=== PATIENT | female | born 1930 | race Caucasian/White ===

== ENCOUNTER 2018-11-21 15:39 | Observation (INO) ==
[2018-11-21] MEDS ORDERED: DIPHTH,PERTUSS(ACELL),TET VAC 0.5 ML VIAL IM ONE (15:58)
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
[2018-11-21 16:35] LABS: Hematocrit 34.6 % (37.0-47.0); Mean Cell Volume 89.6 fl (78-100); Mean Corpuscular Hemoglobin 31.1 pg (27-31); Mean Corpuscular Hgb Conc 34.7 g/dl (32-36); Mean Platelet Volume 9.2 fl (8-12.5); Neutrophil % 68.4 % (42-75.0); Platelet Count 314 K/mm3 (150-450); Red Blood Count 3.86 M/mm3 (4.2-5.4); Red Cell Distribution Width 13.3 % (11.5-14.0); White Blood Count 7.2 K/mm3 (4.0-10.5)
[2018-11-21 16:53] LABS: Troponin I Less than 0.017 ng/mL (0.00-0.10)
[2018-11-21 16:56] LABS: ALT 66 U/L (19-67); AST 77 U/L (0-48); Albumin * 3.4 gm/dl (3.4-5.0); Alkaline Phosphatase * 174 U/L (50-170); Anion Gap 14.5 mmol/L (6.8-13.8); BNP * 1795 pg/mL (5-550); BUN/Creatinine Ratio 12.1 (9.0-21.6); Bilirubin, Total 0.5 mg/dL (0.0-1.1); Blood Urea Nitrogen 19 mg/dL (3-23); Ca. Corrected For Albumin 9.3 mg/dL (8.4-10.2); Calcium * 9.1 mg/dL (7.9-10.9); Carbon Dioxide 24.2 mmol/L (24-32.6); Chloride 100 mmol/L (97-106); Potassium 4.7 mmol/L (3.4-4.6); Sodium 134 mmol/L (132-142); Total Protein 6.8 gm/dL (6.2-8.2)
[2018-11-21 16:57] LABS: Glucose * 547 mg/dL (70-110)
[2018-11-21] MEDS ORDERED: NORMAL SALINE 500 ML IV PRN (17:04)
[2018-11-21] MEDS ORDERED: ACETAMINOPHEN 325 MG TABLET PO ONE (17:57)
[2018-11-21] MEDS ORDERED: LIDOCAINE HCL 50 ML VIAL IJ ONE (19:03)
[2018-11-21 19:18] LABS: Urine Bilirubin Negative (NEGATIVE); Urine Blood Negative /ul (NEGATIVE); Urine Ketone Negative (NEGATIVE); Urine Nitrite Negative (NEGATIVE); Urine Protein Negative (NEGATIVE); Urine Specific Gravity <=1.005 SP.GR. (1.005-1.010); Urine Urobilinogen Normal (NORMAL); Urine pH 5.5 pH (5.0-7.0)
[2018-11-21 19:20] LABS: Urine Appearance Clear (CLEAR); Urine Bacteria None Seen; Urine Color Yellow; Urine RBC None Seen /hpf (0-5); Urine WBC None Seen /hpf (0-5)
[2018-11-21 19:21] LABS: Urine Amorphous Sediment Moderate - 2+ (NONE-FEW)
[2018-11-21] MEDS: NORMAL SALINE 1,000 ML IV PRN (20:28)
[2018-11-21] MEDS ORDERED: INSULIN LISPRO 100 UNITS/ML VIAL SC SCH (21:15)
[2018-11-21] MEDS ORDERED: INSULIN GLARGINE,HUM.REC.ANLOG 100 UNITS/ML VIAL SC ONE (21:50)
[2018-11-21] MEDS ORDERED: INSULIN LISPRO 100 UNITS/ML VIAL SC ONE ×2 (21:56→22:00)
[2018-11-21] MEDS: ACETAMINOPHEN 325 MG TABLET PO PRN (22:24)
[2018-11-22] MEDS: ACETAMINOPHEN 325 MG TABLET PO PRN ×2 (05:33→11:45)
[2018-11-22] MEDS: NORMAL SALINE 1,000 ML IV PRN (07:06)
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
[2018-11-22] MEDS: INSULIN LISPRO 100 UNITS/ML VIAL SC SCH ×2 (07:48→11:51)
[2018-11-22] MEDS ORDERED: LOPERAMIDE HCL 2 MG CAPSULE PO PRN (07:49)
[2018-11-22] MEDS ORDERED: INSULIN REGULAR, HUMAN 100 UNITS/ML VIAL SC STA (08:34)
[2018-11-22 08:56] LABS: Hematocrit 32.7 % (37.0-47.0); Hemoglobin 11.3 gm/dL (12.5-16.0); Mean Cell Volume 89.6 fl (78-100); Mean Corpuscular Hgb Conc 34.6 g/dl (32-36); Mean Platelet Volume 9.4 fl (8-12.5); Neutrophil # 4.9 K/mm3 (1.3-6.0); Neutrophil % 67.3 % (42-75.0); Platelet Count 278 K/mm3 (150-450); Red Blood Count 3.65 M/mm3 (4.2-5.4); Red Cell Distribution Width 13.2 % (11.5-14.0); White Blood Count 7.3 K/mm3 (4.0-10.5)
[2018-11-22] MEDS ORDERED: ENALAPRIL MALEATE 20 MG TABLET PO SCH (09:00)
[2018-11-22] MEDS ORDERED: CALCIUM CARBONATE/VITAMIN D3 1 TAB TABLET PO SCH (09:00)
[2018-11-22] MEDS ORDERED: ASPIRIN 325 MG TABLET.DR PO SCH (09:00)
[2018-11-22] MEDS ORDERED: VERAPAMIL HCL 180 MG TABLET.SA PO SCH (09:00)
[2018-11-22] MEDS ORDERED: LEVOTHYROXINE SODIUM 25 MCG TABLET PO SCH (09:00)
[2018-11-22 09:16] LABS: Anion Gap 11.2 mmol/L (6.8-13.8); Carbon Dioxide 25.9 mmol/L (24-32.6); Estimated Creat Clear 31.9; Potassium 4.1 mmol/L (3.4-4.6); TSH * 2.931 uIU/mL (0.358-3.74)
[2018-11-22] MEDS ORDERED: INSULIN LISPRO 100 UNITS/ML VIAL SC SCH ×2 (12:00)
--- NOTE | 2018-11-22 12:16 | DS ---
Date of Discharge:: 11/22/18 Description of Stay: 88-year-old female admitted for facial injury and right upper extremity injury due to a fall that occurred at the [facility] where she is residing. Patient reports that while walking around the facility with her cane a carie of wind over took her and knocked her down. Patient fell onto her right side hitting her face and the lateral aspect of her right arm and hand. Nursing staff at the facility found her on the ground and decided to take her to the hospital for evaluation. Upon arriving patient was found to have a laceration on the lateral aspect of the dorsum of the right hand and a superficial wound on the lateral aspect of the right arm. She received 7 stitches to repair the laceration on her hand and the wound was covered with medicated patch. Labs on admission demonstrated acute kidney injury with a rise in creatinine of 1.5 and a decreased GFR. Patient was also found to have an elevated BNP but her clinical presentation was not indicative of congestive heart failure and her chest x-ray was also negative for any fluid in her lungs. There was also a positive d-dimer which prompted a CT angios which is negative for PE. Head and cervical CT were negative for any acute process but the head CT did demonstrate a hematoma in the right periorbital area which is where the patient hit her head. Bedside evaluation revealed a patient that was comfortable, maintaining stable vitals, but had a hematoma under her right eye and mild tenderness of her right ribs. She denied any dizziness or headaches and reported adequate control of pain. During the hospitalization patient was treated with gentle hydration which improved her renal function confirmed by a BMP with a decrease of creatinine to 1. Patient was also found to have new onset atrial fibrillation but since then has converted to normal sinus rhythm with adequate heart rate. Given her high risk of falls we will hold off on any anticoagulation except for her regular aspirin. There were no other concerning findings except for a mildly elevated AST and alkaline phosphatase likely related to the fall. After careful bedside evaluation of the patient and of the labs decision to discharge patient back to the [place] where she will receive home health services by [facility] was made. Therefore Mrs. Carey Covington was determined to be homebound due to worsening problems with balance and ambulation and her high risk of falls. The need for physical therapy through [facility] is necessary for addressing issues with balance, safe transfer, and ambulation. Patient is to resume her previous medications including metformin and especially her antihypertensives since her blood pressure was elevated during the hospitalization and she is to follow-up with me her PCP next week. The need for home health care skilled services is directly related to the time spent [id number] with the patient. Procedures Performed: none Results and Findings: Lab Pending Results 11/21/18 16:29: WBC 7.2, RBC 3.86 L, Hgb 12.0 L, Hct 34.6 L, MCV 89.6, MCH 31.1 H, MCHC 34.7, RDW 13.3, Plt Count 314, MPV 9.2, Immature Gran % (Auto) 0.70 H, Immature Gran # (Auto) 0.05 H, Neutrophils % 68.4, Lymphocytes % 20.5, Monocytes % 6.5, Eosinophils % 3.3 H, Basophils % 0.6, Nucleated RBC % 0.0, Neutrophils # 5.0, Lymphocytes # 1.48 L, Monocytes # 0.5, Eosinophils # 0.2, Absolute Basophils 0.0 11/21/18 16:29: Sodium 134, Plasma Sodium 141, Potassium 4.7 H, Chloride 100, Carbon Dioxide 24.2, Anion Gap 14.5 H, BUN 19 D, Creatinine 1.57 H D, Est GFR (Non-Af Amer) 33 L D, BUN/Creatinine Ratio 12.1, Random Glucose 547 H, Calcium 9.1, Calcium Adj for Albumin 9.3, Total Bilirubin 0.5, AST 77 H, ALT 66, Alkaline Phosphatase 174 H, Troponin I Less than 0.017, B-Natriuretic Peptide 1795 H, Total Protein 6.8, Albumin 3.4 11/21/18 16:29: D-Dimer 1.37 H 11/21/18 19:12: Urine Color Yellow, Urine Appearance Clear, Urine pH 5.5, Ur Specific [place] <=1.005, Urine Protein Negative, Urine Glucose (UA) >=1000 H, Urine Ketones Negative, Urine Blood Negative, Urine Nitrate Negative, Urine B ilirubin Negative, Urine Urobilinogen Normal, Ur Leukocyte Esterase Negative, Urine RBC None seen, Urine WBC None seen, Ur Epithelial Cells 0-5, Amorphous Sediment Moderate - 2+ H, Urine Bacteria None seen, Urine Culture Comments No culture indicated 11/22/18 08:40: WBC 7.3, RBC 3.65 L, Hgb 11.3 L, Hct 32.7 L, MCV 89.6, MCH 31.0, MCHC 34.6, RDW 13.2, Plt Count 278, MPV 9.4, Immature Gran % (Auto) 0.40, Immature Gran # (Auto) 0.03, Neutrophils % 67.3, Lymphocytes % 23.2, Monocytes % 6.0, Eosinophils % 2.6, Basophils % 0.5, Nucleated RBC % 0.0, Neutrophils # 4.9, Lymphocytes # 1.70, Monocytes # 0.4, Eosinophils # 0.2, Absolute Basophils 0.0 11/22/18 08:40: Sodium 133, Plasma Sodium 136, Potassium 4.1, Chloride 100, Carbon Dioxide 25.9, Anion Gap 11.2, BUN 14, Creatinine 1.00, Est GFR (Non-Af Amer) 56 L D, BUN/Creatinine Ratio 14.0, Random Glucose 317 H D, Calcium 9.0, TSH 2.931 Discharge Location: [facility] Disposition: [facility] Agency: [facility] Home Health Condition: Stable Face to Face Encounter completed per [facility] Guidelines: Yes Discharge Activity: Activity as tolerated Discharge Diet: Consistent carbs Custodial Therapy: Physical Therapy Referrals: Cece Haile MD [Primary Care Provider] - Additional Patient Instructions (free text): -Please make TCM appointment unless residential discharge, or if following up with outside provider. Thank you! Kaitlynn @ [place] [id number].[facility] new for PT. Please call report and fax orders upon discharge. Prescriptions (Any new or edited meds): traMADol HCL [Tramadol HCl] 50 mg PO Q6H PRN 8 Days #30 tablet PRN Reason: Pain Complete Home Medications List: Complete Home Medication List: aspirin 325 mg tablet,delayed release 325 mg PO DAILY #90 tab 08/05/18 benazepril 40 mg tablet 20 mg PO DAILY #45 tab 08/05/18 calcium carbonate-vitamin D3 600 mg (1,500 mg)-800 unit tablet 1 tab PO DAILY #90 tab 08/05/18 ibuprofen 600 mg tablet 600 mg PO TID PRN #30 tab 08/05/18 metformin 500 mg tablet 500 mg PO BID #180 tab 08/05/18 nateglinide 120 mg tablet 120 mg PO TID #270 tab 08/05/18 verapamil ER 360 mg 24 hr capsule,extended release 360 mg PO DAILY #90 cap 08/05/18 levothyroxine 25 mcg tablet 25 mcg PO DAILY #90 tab 08/09/18 blood sugar diagnostic strips See Dose Instructions .ROUTE .MEDSUPPLY #50 ea 08/10/18 blood-glucose meter kit See Dose Instructions .ROUTE .MEDSUPPLY #1 ea 08/10/18 loperamide 2 mg capsule 2 mg PO Q4H PRN #60 cap 08/16/18 traMADol HCL [Tramadol HCl] 50 mg PO Q6H PRN 8 Days #30 tablet 11/22/18
[2018-11-22 13:13] VITALS: BP 160/65
== END 2018-11-22 13:00 | disposition home health service (06) ==
LOC: ER 15:39 → MS 15:39
PROVIDERS: ADMIT Internal Medicine; ATTEND Family Medicine
DX: S61.419A Laceration without foreign body of unspecified hand, initial encounter; I49.9 Cardiac arrhythmia, unspecified; I48.91 Unspecified atrial fibrillation; S00.83XA Contusion of other part of head, initial encounter; N28.9 Disorder of kidney and ureter, unspecified; W19.XXXA Unspecified fall, initial encounter
CPT/HCPCS: 36415; 70450; 70486; 71275; 72125; 73130; 80048; 80053; 81001; 83519; 83880; 84443; 84484; 85025; 85379; 87081; 90471; 93005; 96374; 96375; 97161; 99285; G0378; Q9967

== ENCOUNTER 2020-03-17 10:45 | Inpatient (IN) ==
[2020-03-17] MEDS ORDERED: ONDANSETRON HCL/PF 2 MG/ML VIAL IV ONE ×2 (11:07→12:53)
[2020-03-17] MEDS ORDERED: FUROSEMIDE 10 MG/ML VIAL IV ONE (11:07)
[2020-03-17 11:23] LABS: Hematocrit 37.2 % (37.0-47.0); Hemoglobin 12.4 gm/dL (12.5-16.0); Mean Cell Volume 90.7 fl (78-100); Mean Corpuscular Hemoglobin 30.2 pg (27-31); Mean Corpuscular Hgb Conc 33.3 g/dl (32-36); Mean Platelet Volume 9.8 fl (8-12.5); Platelet Count 488 K/mm3 (150-450); Red Cell Distribution Width 13.4 % (11.5-14.0)
[2020-03-17 11:25] LABS: Total Cells Counted 100
[2020-03-17 11:43] LABS: Urine Appearance Clear (CLEAR); Urine Bilirubin Negative (NEGATIVE); Urine Blood 150 /ul (NEGATIVE); Urine Color Yellow; Urine Ketone 15 mg/dL (NEGATIVE)
[2020-03-17 11:44] LABS: Urine Nitrite Negative (NEGATIVE); Urine Protein 30 mg/dL (NEGATIVE); Urine Urobilinogen Normal (NORMAL); Urine pH 5.5 pH (5.0-7.0)
[2020-03-17 11:45] LABS: Urine Bacteria None Seen; Urine RBC 0-5 /hpf (0-5); Urine WBC 0-5 /hpf (0-5)
[2020-03-17 11:47] LABS: ALT 32 U/L (19-67); AST 58 U/L (0-48); Albumin * 3.7 gm/dl (3.4-5.0); Alkaline Phosphatase * 106 U/L (50-170); Anion Gap 23.7 mmol/L (6.8-13.8); BNP * 8312 pg/mL (5-550); BUN/Creatinine Ratio 11.3 (9.0-21.6); Bilirubin, Total 1.8 mg/dL (0.0-1.1); Blood Urea Nitrogen 19 mg/dL (3-23); Ca. Corrected For Albumin 9.6 mg/dL (8.4-10.2); Calcium * 9.7 mg/dL (7.9-10.9); Carbon Dioxide 16.8 mmol/L (24-32.6); Chloride 95 mmol/L (97-106); Potassium 4.5 mmol/L (3.4-4.6); Sodium 131 mmol/L (132-142); Total Protein 7.5 gm/dL (6.2-8.2)
[2020-03-17 11:49] LABS: Glucose * 554 mg/dL (70-110)
[2020-03-17 11:51] LABS: Band 8 % (0-2.0); Lymphocyte 3 % (20-51); Monocyte 6 % (0-9); Neutrophil 83 % (42-75); Neutrophil # 16.6 K/mm3 (1.3-6.0); Platelet Estimate Increased (NORMAL); RBC Morphology Normal (NORMAL)
[2020-03-17] MEDS ORDERED: cefTRIAXone SODIUM 1,000 MG/100 ML BAG IV ONE (12:09)
[2020-03-17] MEDS: AZITHROMYCIN 500 MG in DEXTROSE 5 % IN WATER 250 ML IV SCH ×2 (12:53)
[2020-03-17] MEDS ORDERED: DIPHTH,PERTUSS(ACELL),TET VAC 0.5 ML VIAL IM ONE (12:54)
--- NOTE | 2020-03-17 13:12 | ERNOTE ---
Dyspnea - Date Date of Service: 03/17/20 - General Presenting Symptoms: other - left weakness, trouble breathing Time Seen by Provider: 03/17/20 10:53 Source: other - patient unable to provide any meaningful history Exam Limitations: clinical condition, physical impairment - Immun/Allergies/Home Medications Immunizations: IMMUNIZATION HX Immunizations Up to Date Yes History of Influenza Vaccine No Hx Pneumococcal Vaccination No Allergies/Adverse Reactions: Allergies fructose Adverse Reaction (Verified 03/17/20 11:03) diarrhea Home Medications: HOME MEDICATIONS blood-glucose meter See Dose Instructions .ROUTE .MEDSUPPLY #1 ea 08/10/18 [Last Taken Unknown] benazepril 40 mg tablet See Rx Instructions .ROUTE .COMPLEX #15 tab 07/08/19 [Last Taken Unknown] ibuprofen 600 mg tablet See Rx Instructions .ROUTE .COMPLEX #30 unknown measurement unit code: tablet 07/11/19 [Last Taken Unknown] lancing device with lancets kit See Rx Instructions .ROUTE .MEDSUPPLY #50 ea 07/11/19 [Last Taken Unknown] acetaminophen 500 mg tablet 500 mg PO Q4H PRN #30 tab 09/01/19 [Last Taken Unknown] menthol 4 % topical gel 1 applic TP BID-TID PRN #118 ml 09/05/19 [Last Taken Unknown] loperamide 2 mg capsule See Rx Instructions .ROUTE .COMPLEX #60 unknown measurement unit code: capsule 09/06/19 [Last Taken Unknown] benazepril 40 mg tablet See Rx Instructions .ROUTE .COMPLEX #14 unknown measure ment unit code: tablet 09/07/19 [Last Taken Unknown] nateglinide 120 mg tablet See Rx Instructions .ROUTE .COMPLEX #90 tab 09/07/19 [Last Taken Unknown] calcium carbonate-vitamin D3 600 mg (1,500 mg)-800 unit tablet See Rx Instructions .ROUTE .COMPLEX #30 tab 12/15/19 [Last Taken Unknown] verapamil 360 mg 24 hr capsule,extended release See Rx Instructions .ROUTE .COMPLEX #90 cap 01/09/20 [Last Taken Unknown] aspirin 325 mg tablet,delayed release 325 mg PO DAILY #28 tab 02/15/20 [Last Taken Unknown] levothyroxine 25 mcg tablet 25 mcg PO DAILY #28 tab 02/15/20 [Last Taken Unknown] metformin 500 mg tablet 1,000 mg PO BID #112 tab 02/15/20 [Last Taken Unknown] blood sugar diagnostic See Dose Instructions .ROUTE .MEDSUPPLY #100 ea 03/05/20 [Last Taken Unknown] - History of Present Illness Narrative: Patient brought in by EMS for weakness left side. It is unknown when she was last normal. She had a fall at 7am but not clear if she was weak at that time. At 10 he was re-checked and was weak on the let and having trouble breathing. She does deny any pain to me at this time. No other meaningful history can be obtained from her at this time. EMS called, BS greater than 500. Placed on oxygen for trouble breathing. Severity: severe Treatment TOUR BUS DRIVER/GUIDE: paramedics Initiating event: Reports: unknown Frequency of episodes: Reports: no prior episodes Modifying Factors - (Improves): Reports: nothing Modifying Factors (Worsens): Reports: nothing Associated Symptoms-Dyspnea: Reports: weakness Prior Treatment: Denies: recently seen Review of Systems - Narrative Narrative: ROS unobtainable in entirety d/t patient condition Medical History (Last Reviewed 03/17/20 @ 13:03 by Star Ortega MD) Hypertension (Chronic) Onset Date: Unknown Diabetes (Chronic) Onset Date: Unknown Hypothyroidism (Chronic) Onset Date: Unknown Heart murmur (Acute) Discolored nails (Acute) toenails Hypertrophic toenail (Acute) Edema (Acute) bilateral lower extremities Thinning of skin (Acute) Dry skin (Acute) Foot pain, bilateral (Acute) Left shoulder strain (Acute) Superficial thrombosis of right lower extremity (Acute) Acute renal insufficiency (Acute) Fall (Acute) Traumatic hematoma of face (Acute) Laceration of hand (Acute) Skin tear of forearm without complication (Acute) New onset atrial fibrillation (Resolved) Surgical History: Surgical History (Last Reviewed 03/17/20 @ 13:03 by Star Ortega MD) Hx of removal of cyst (Resolved) Onset Date: Unknown right breast Cataract (Resolved) Onset Date: Unknown Family History: Family History (Last Reviewed 03/17/20 @ 13:03 by Star Ortega MD) Mother Diabetes Other No pertinent family history Social History: (Last Reviewed 03/17/20 @ 13:03 by Star Ortega MD) Social History: mcc: Yes mcc comment: [place] Marital status: / current occupational status: retired Highest level of school completed/degree received: high school graduate Service: No Tobacco: Smoking Status: Never smoker Alcohol: alcohol intake: never Substance Use: substance use type: does not use Dietary Habits: caffeine: Yes Physical Exam - Physical Exam General Appearance: Present: alert, moderate distress, other - moderate respiratory distress Head Exam: Present: normal inspection. Absent: Bond's Sign, raccoon eyes Eye Exam: Normal inspection: bilateral Ears, Nose, Throat: Present: normal ENT inspection Neck: Present: normal inspection Respiratory: Present: respiratory distress, other - rales bilaterally Cardiovascular/Chest: Present: normal peripheral pulses, tachycardia Gastrointestinal/Abdominal: Present: nontender, soft Back Exam: Absent: CVA tenderness (R), CVA tenderness (L) Extremity Exam: Present: other - no deformity Neurological Exam: Present: other - ALert. Not speaking to me, just nodding head. Left arm weak, she will hold it off the bed at times but other times will not move it. Will not move left leg or wiggle her toes on the left, nods that she can feel me touching her skin on the left Skin Exam: Present: normal color, warm/dry Progress - Results and Orders Patient's Lab Results:: I have reviewed the patient's lab results. - Vital Signs Patient's Vital Signs:: I have reviewed the patient's vital signs. Vital Signs: Vital Signs 03/17/20 11:01 03/17/20 11:05 03/17/20 11:29 Temperature 36.9 C Pulse Rate 112 H 111 H 112 H Respiratory Rate 32 H 32 H Blood Pressure 142/120 H 172/93 H - EKG EKG #1 EKG read: Interp. by me EKG Comments: Likelt a fib RVR rate 112. New LBBB. - X-Ray X-Ray #1 X-Ray: chest Interpretation: Interp. by me X-ray Comments: No real time radiology reads. I personally reviewed portable CXR image. Acute pulmonary edema likely, cannot r/o underlying pneumonia - CT/Ultrasound CT/Ultrasound Narrative: I reviewed official radiology report for CT head - Progress/Reassessment Chief Complaint: Dyspnea Progress Note-Subjective: 03/17/20 13:06 Patient given IV lasix and her respiratory status improved greatly. She was able to lie flat in bed, more comfortable. Daughter here. Patient/family re quest that no artificial life support be initiated. Meds/IV fluids/comfort measures only, no transfer. No intubation or CPR. BiPap for comfort only if needed. I discussed the case with Dr Iyer, she will be admitted. I spent over 35 minutes in the direct care of the critically ill patient that after extensive evaluation and treatment will become DNR, comfort measures/IV meds/treatments only. She is not a candidate for tPA, out of window. 03/17/20 13:09 Departure Clinical Impression: Stroke, ACS (acute coronary syndrome), Flash pulmonary edema, Pneumonia - Departure Disposition: Still a patient Condition: Critical Referrals: Cece Haile MD [Primary Care Provider] - Critical Care Time - Critical Care Critical Time Spent:: Yes Total time (mins) Spent:: 35 Critical Care: I spent over 35 minutes in the direct care and care coordination of this patient presenting with multiple acute life threats.
[2020-03-17 13:22] LABS: SARS-CoV-2 Not Detected (NotDetected)
[2020-03-17] MEDS ORDERED: ACETAMINOPHEN 500 MG TABLET PO PRN (15:40)
[2020-03-17] MEDS ORDERED: ONDANSETRON HCL 4 MG TABLET PO PRN (15:41)
[2020-03-17] MEDS ORDERED: TROLAMINE SALICYLATE 90 APPL TUBE TP PRN (16:28)
[2020-03-17] MEDS: LORazepam 2 MG/ML DISP.SYRIN IV PRN (17:28)
--- NOTE | 2020-03-17 19:21 | HP ---
Chief Complaint - Chief Complaint Date of Service: 03/17/20 Time of Service: 19:20 Chief Complaint: left sided weakness, dyspnea History of Present Illness: History obtained from ERP and daughter. She has a history of dementia. She fell at breakfast this morning. She had her second COVID vaccine this week. Workup in the ED found several significant findings - WBC 20.0, troponin 9.6, lactate 9.4. Her head CT showed "NEW LOW-ATTENUATION WITHIN THE RIGHT OCCIPITAL LOBE AND TO LESSER EXTENT WITHIN THE LEFT OCCIPITAL LOBE. THE ATTENUATION SUGGESTS LATE SUBACUTE INFARCTIONS." She did not want life prolonging measures, interventions, or intubation, so her daughter declined transfer and opted for comfort measures. Carey does not interact during her admission exam. Medical History (Last Reviewed 03/17/20 @ 13:03 by Star Ortega MD) Hypertension (Chronic) Onset Date: Unknown Diabetes (Chronic) Onset Date: Unknown Hypothyroidism (Chronic) Onset Date: Unknown Heart murmur (Acute) Discolored nails (Acute) toenails Hypertrophic toenail (Acute) Edema (Acute) bilateral lower extremities Thinning of skin (Acute) Dry skin (Acute) Foot pain, bilateral (Acute) Left shoulder strain (Acute) Superficial thrombosis of right lower extremity (Acute) Acute renal insufficiency (Acute) Fall (Acute) Traumatic hematoma of face (Acute) Laceration of hand (Acute) Skin tear of forearm without complication (Acute) New onset atrial fibrillation (Resolved) Surgical History: Surgical History (Last Reviewed 03/17/20 @ 13:03 by Star Ortega MD) Hx of removal of cyst (Resolved) Onset Date: Unknown right breast Cataract (Resolved) Onset Date: Unknown Family History: Family History (Last Reviewed 03/17/20 @ 13:03 by Star Ortega MD) Mother Diabetes Other No pertinent family history Social History: (Last Reviewed 03/17/20 @ 13:03 by Star Ortega MD) Social History: mcc: Yes mcc comment: [place] Marital status: / current occupational status: retired Highest level of school completed/degree received: high school graduate Service: No Tobacco: Smoking Status: Never smoker Alcohol: alcohol intake: never Substance Use: substance use type: does not use Dietary Habits: caffeine: Yes Review Of Systems (GEN) - Review of Systems Generalized/Overall Review: Present: No Symptoms Reported - unable to obtain Immunizations: IMMUNIZATION HX Immunizations Up to Date Yes History of Influenza Vaccine No Hx Pneumococcal Vaccination No Allergies/Adverse Reactions: Allergies Allergy/AdvReac Type Severity Reaction Status Date / Time fructose AdvReac diarrhea Verified 03/17/20 11:03 Home Medications: HOME MEDICATIONS acetaminophen 500 mg tablet 500 mg PO Q4H PRN #30 tab 09/01/19 [Last Taken Unknown] menthol 4 % topical gel 1 applic TP BID-TID PRN #118 ml 09/05/19 [Last Taken Unknown] aspirin 325 mg tablet,delayed release 325 mg PO DAILY #28 tab 02/15/20 [Last Taken Unknown] levothyroxine 25 mcg tablet 25 mcg PO DAILY #28 tab 02/15/20 [Last Taken Unknown] metformin 500 mg tablet 1,000 mg PO BID #112 tab 02/15/20 [Last Taken Unknown] Benazepril HCl 20 mg pe PO DAILY 03/17/20 [Last Taken Unknown] Calcium Carbonate/Vitamin D3 [Calcium 600-Vit D3 800 Tablet] 1 tab PO HS 03/17/20 [Last Taken Unknown] Ibuprofen [Motrin] 1 tab PO TID PRN 03/17/20 [Last Taken Unknown] Loperamide HCl [Imodium A-D] 2 mg PO Q4H PRN 03/17/20 [Last Taken Unknown] Nateglinide 120 mg PO TID 03/17/20 [Last Taken Unknown] Verapamil HCl 360 mg PO DAILY 03/17/20 [Last Taken Unknown] Exam - Exam Vital Signs: Vital Signs - Last Taken Temp 36.9 C 03/17/20 14:11 Pulse 111 H 03/17/20 15:14 Resp 28 H 03/17/20 15:14 BP 133/73 03/17/20 15:14 Pulse Ox 93 03/17/20 15:14 Constitutional: Present: No distress, Somnolent, Elderly Respiratory: Present: lungs clear, normal breath sounds Cardiovascular/Chest: Present: regular rate, rhythm Abdomen: Present: soft Extremity: Present: other - cool bilateral lower extremities. no skin changes. Absent: lower extremity edema Diagnostic Studies: Abnormal Lab Results 03/17/20 03/17/20 03/17/20 Range/Units 11:05 11:16 11:16 WBC 20.0 H (4.0-10.5) K/mm3 RBC 4.10 L (4.2-5.4) M/mm3 Hgb 12.4 L (12.5-16.0) gm/dL Plt Count 488 H (150-450) K/mm3 Neutrophils % (Manual) 83 H (42-75) % Band Neuts % (Manual) 8 H (0-2.0) % Lymphocytes % (Manual) 3 L (20-51) % Neutrophils # (Manual) 16.6 H (1.3-6.0) K/mm3 Lymphocytes # (Manual) 0.6 L (1.5-3.5) k/mm3 Monocytes # (Manual) 1.2 H (0.0-1.0) k/mm3 Platelet Estimate Increased H (NORMAL) pCO2 28.6 L (32.0-45.0) mmHg pO2 76.7 L (83.0-108.0) mmHg HCO3 13.9 L (21.0-28.0) mmol/L Total CO2 14.8 L (19.0-24.0) mmol/L Base Excess -10.9 L (-2.0-3.0) mmol/L ABG pH 7.31 L (7.35-7.45) Sodium 131 L (132-142) mmol/L Chloride 95 L (97-106) mmol/L Carbon Dioxide 16.8 L (24-32.6) mmol/L Anion Gap 23.7 H (6.8-13.8) mmol/L Creatinine 1.68 H D (0.4-1.4) mg/dL Est GFR (Non-Af Amer) 31 L D (60-130) mL/min Random Glucose 554 H (70-110) mg/dL Lactic Acid, Venous (0.4-2.0) mmol/L Total Bilirubin 1.8 H (0.0-1.1) mg/dL AST 58 H (0-48) U/L Troponin I 9.600 H* (0.00-0.10) ng/mL B-Natriuretic Peptide 8312 H (5-550) pg/mL Urine Protein (NEGATIVE) mg/dL Urine Glucose (UA) (NEGATIVE) mg/dL Urine Blood (NEGATIVE) /ul 03/17/20 03/17/20 03/17/20 Range/Units 11:16 11:31 14:00 WBC (4.0-10.5) K/mm3 RBC (4.2-5.4) M/mm3 Hgb (12.5-16.0) gm/dL Plt Count (150-450) K/mm3 Neutrophils % (Manual) (42-75) % Band Neuts % (Manual) (0-2.0) % Lymphocytes % (Manual) (20-51) % Neutrophils # (Manual) (1.3-6.0) K/mm3 Lymphocytes # (Manual) (1.5-3.5) k/mm3 Monocytes # (Manual) (0.0-1.0) k/mm3 Platelet Estimate (NORMAL) pCO2 (32.0-45.0) mmHg pO2 (83.0-108.0) mmHg HCO3 (21.0-28.0) mmol/L Total CO2 (19.0-24.0) mmol/L Base Excess (-2.0-3.0) mmol/L ABG pH (7.35-7.45) Sodium (132-142) mmol/L Chloride (97-106) mmol/L Carbon Dioxide (24-32.6) mmol/L Anion Gap (6.8-13.8) mmol/L Creatinine (0.4-1.4) mg/dL Est GFR (Non-Af Amer) (60-130) mL/min Random Glucose (70-110) mg/dL Lactic Acid, Venous 9.4 H* 6.4 H* (0.4-2.0) mmol/L Total Bilirubin (0.0-1.1) mg/dL AST (0-48) U/L Troponin I (0.00-0.10) ng/mL B-Natriuretic Peptide (5-550) pg/mL Urine Protein 30 H (NEGATIVE) mg/dL Urine Glucose (UA) >=1000 H (NEGATIVE) mg/dL Urine Blood 150 H (NEGATIVE) /ul Laboratory Results WBC 20.0 K/mm3 (4.0-10.5) H 03/17/20 11:16 RBC 4.10 M/mm3 (4.2-5.4) L 03/17/20 11:16 Hgb 12.4 gm/dL (12.5-16.0) L 03/17/20 11:16 Hct 37.2 % (37.0-47.0) 03/17/20 11:16 MCV 90.7 fl (78-100) 03/17/20 11:16 MCH 30.2 pg (27-31) 03/17/20 11:16 MCHC 33.3 g/dl (32-36) 03/17/20 11:16 RDW 13.4 % (11.5-14.0) 03/17/20 11:16 Plt Count 488 K/mm3 (150-450) H 03/17/20 11:16 MPV 9.8 fl (8-12.5) 03/17/20 11:16 Neutrophils % (Manual) 83 % (42-75) H 03/17/20 11:16 Band Neuts % (Manual) 8 % (0-2.0) H 03/17/20 11:16 Lymphocytes % (Manual) 3 % (20-51) L 03/17/20 11:16 Monocytes % (Manual) 6 % (0-9) 03/17/20 11:16 Neutrophils # (Manual) 16.6 K/mm3 (1.3-6.0) H 03/17/20 11:16 Lymphocytes # (Manual) 0.6 k/mm3 (1.5-3.5) L 03/17/20 11:16 Monocytes # (Manual) 1.2 k/mm3 (0.0-1.0) H 03/17/20 11:16 Platelet Estimate Increased (NORMAL) H 03/17/20 11:16 RBC Morphology Normal (NORMAL) 03/17/20 11:16 pCO2 28.6 mmHg (32.0-45.0) L 03/17/20 11:05 pO2 76.7 mmHg (83.0-108.0) L 03/17/20 11:05 HCO3 13.9 mmol/L (21.0-28.0) L 03/17/20 11:05 Total CO2 14.8 mmol/L (19.0-24.0) L 03/17/20 11:05 Base Excess -10.9 mmol/L (-2.0-3.0) L 03/17/20 11:05 ABG pH 7.31 (7.35-7.45) L 03/17/20 11:05 ABG O2 Sat (Measured) 94.4 % (94.0-98.0) 03/17/20 11:05 Sodium 131 mmol/L (132-142) L 03/17/20 11:16 Plasma Sodium 138 mmol/L (130-142) 03/17/20 11:16 Potassium 4.5 mmol/L (3.4-4.6) 03/17/20 11:16 Chloride 95 mmol/L (97-106) L 03/17/20 11:16 Carbon Dioxide 16.8 mmol/L (24-32.6) L 03/17/20 11:16 Anion Gap 23.7 mmol/L (6.8-13.8) H 03/17/20 11:16 BUN 19 mg/dL (3-23) 03/17/20 11:16 Creatinine 1.68 mg/dL (0.4-1.4) H D 03/17/20 11:16 Est GFR (Non-Af Amer) 31 mL/min (60-130) L D 03/17/20 11:16 BUN/Creatinine Ratio 11.3 (9.0-21.6) 03/17/20 11:16 Random Glucose 554 mg/dL (70-110) H 03/17/20 11:16 Lactic Acid, Venous 6.4 mmol/L (0.4-2.0) H* 03/17/20 14:00 Calcium 9.7 mg/dL (7.9-10.9) 03/17/20 11:16 Calcium Adj for Albumin 9.6 mg/dL (8.4-10.2) 03/17/20 11:16 Total Bilirubin 1.8 mg/dL (0.0-1.1) H 03/17/20 11:16 AST 58 U/L (0-48) H 03/17/20 11:16 ALT 32 U/L (19-67) 03/17/20 11:16 Alkaline Phosphatase 106 U/L (50-170) 03/17/20 11:16 Troponin I 9.600 ng/mL (0.00-0.10) H* 03/17/20 11:16 B-Natriuretic Peptide 8312 pg/mL (5-550) H 03/17/20 11:16 Total Protein 7.5 gm/dL (6.2-8.2) 03/17/20 11:16 Albumin 3.7 gm/dl (3.4-5.0) 03/17/20 11:16 Urine Color Yellow 03/17/20 11:31 Urine Appearance Clear (CLEAR) 03/17/20 11:31 Urine pH 5.5 pH (5.0-7.0) 03/17/20 11:31 Ur Specific [place] 1.020 SP.GR. (1.005-1.010) 03/17/20 11:31 Urine Protein 30 mg/dL (NEGATIVE) H 03/17/20 11:31 Urine Glucose (UA) >=1000 mg/dL (NEGATIVE) H 03/17/20 11:31 Urine Ketones 15 mg/dL (NEGATIVE) 03/17/20 11:31 Urine Blood 150 /ul (NEGATIVE) H 03/17/20 11:31 Urine Nitrate Negative (NEGATIVE) 03/17/20 11:31 Urine Bilirubin Negative mg/dl (NEGATIVE) 03/17/20 11:31 Urine Urobilinogen Normal EU/dl (NORMAL) 03/17/20 11:31 Ur Leukocyte Esterase Negative /ul (NEGATIVE) 03/17/20 11:31 Urine RBC 0-5 /hpf (0-5) 03/17/20 11:31 Urine WBC 0-5 /hpf (0-5) 03/17/20 11:31 Ur Epithelial Cells 0-5 /hpf (0-5) 03/17/20 11:31 Urine Bacteria None seen (NONE) 03/17/20 11:31 Urine Culture Comments No culture indicated 03/17/20 11:31 Serum Ketones Negative (NEGATIVE) 03/17/20 11:16 Chlamy pneumoniae PCR Not detected (NotDetected) 03/17/20 11:45 Adenovirus (PCR) Not detected (NotDetected) 03/17/20 11:45 B. pertussis DNA (PCR) Not detected (NotDetected) 03/17/20 11:45 B.parapertussis DNA PCR Not detected (NotDetected) 03/17/20 11:45 Coronavirus OC43 (PCR) Not detected (NotDetected) 03/17/20 11:45 Coronavirus HKU1 (PCR) Not detected (NotDetected) 03/17/20 11:45 Coronavirus 229E (PCR) Not detected (NotDetected) 03/17/20 11:45 Coronavirus NL63 (PCR) Not detected (NotDetected) 03/17/20 11:45 Human Metapneumovir PCR Not detected (NotDetected) 03/17/20 11:45 Influenza B (RT-PCR) Not detected (NotDetected) 03/17/20 11:45 M. pneumoniae (PCR) Not detected (NotDetected) 03/17/20 11:45 Parainfluenza 1 (PCR) Not detected (NotDetected) 03/17/20 11:45 Parainfluenza 2 (PCR) Not detected (NotDetected) 03/17/20 11:45 Parainfluenza 3 (PCR) Not detected (NotDetected) 03/17/20 11:45 Parainfluenza 4 (PCR) Not detected (NotDetected) 03/17/20 11:45 RSV (PCR) Not detected (NotDetected) 03/17/20 11:45 Rhinovirus (PCR) Not detected (NotDetected) 03/17/20 11:45 SARS-CoV-2 (PCR) Not detected (NotDetected) 03/17/20 11:45 Assessment/Plan - Narrative Narrative: She has several significant findings on ED workup. New left bundle branch block and highly elevated troponin of 9.4 indicate acute coronary event. Infarcts on CT head indicate stroke. Her lactate is highly elevated at 9.6. White blood cell count elevated at 20. She had indicated to family she does not want aggressive life prolonging measures, and family has opted for comfort cares. She was requiring oxygen in the ER, but did not want to keep the nasal cannula on. She is actually now oxygenating at 93% on room air. Her glucose was highly elevated, greater than 500 on admission. Discussed this with her daughter, and she agreed that we can treat with insulin, as this may improve her mentation. She was interactive with the ER physician, but not with me on my admission exam. She was given a dose of azithromycin in the ED. Will enlist case management assistance for placement on Thursday. Will ask her daughter tomorrow if there is a hospice company she prefers. - Assessment/Plan (1) Left bundle branch block Problem: Acute (2) CVA (cerebral vascular accident) Problem: Acute (3) ACS (acute coronary syndrome) Problem: Acute (4) Flash pulmonary edema Problem: Acute (5) Elevated lactic acid level Problem: Acute (6) Diabetes mellitus with hyperglycemia Problem: Acute (7) Hyponatremia Problem: Acute (8) Hypertension Problem: Chronic (9) Diabetes Problem: Chronic (10) Acute renal insufficiency Problem: Acute (11) Hypothyroidism Problem: Chronic
[2020-03-17] MEDS ORDERED: HYDROcodone/ACETAMINOPHEN 1 EACH TABLET PO PRN (21:20)
[2020-03-17] MEDS: INSULIN LISPRO 100 UNITS/ML VIAL SC SCH (22:48)
[2020-03-18] MEDS: LORazepam 2 MG/ML DISP.SYRIN IV PRN (01:27)
[2020-03-18] MEDS: INSULIN LISPRO 100 UNITS/ML VIAL SC SCH ×4 (09:12→21:00)
--- NOTE | 2020-03-18 12:06 | PN ---
Subjective - Date and Time Seen Date: 03/18/20 Time: 09:00 Subjective Narrative: Patient continues to be nonresponsive. She has not woken up to eat or drink anything. Essentially no change from admission exam. Objective - Review of Systems Generalized/Overall Review: Reports: No Symptoms Reported - unable to contribute - Vitals Vitals: Last Vital Signs Temp 36.9 C 03/17/20 14:11 Pulse 111 H 03/17/20 15:14 Resp 28 H 03/17/20 15:14 BP 133/73 03/17/20 15:14 Pulse Ox 93 03/17/20 15:14 - Abnormal Lab Findings Abnormal Lab Findings: Abnormal Lab Results 03/17/20 Range/Units 14:00 Lactic Acid, Venous 6.4 H* (0.4-2.0) mmol/L - Exam Constitutional: Present: No distress, Somnolent, Elderly Respiratory: Present: no respiratory distress Cardiovascular/Chest: Present: tachycardia Abdomen: Present: soft Extremity: Absent: lower extremity edema Eye contact: Present: other - does not interact or respond Cauti Physician Documentation - Urinary Catheter Management Urethral ([place]) Date of Insertion: 03/17/20 Time of Insertion: 11:32 Assessment/Plan Plan Narrative: Patient has new left bundle branch block and highly elevated troponin, STEMI equivalent. She also has occipital infarcts on her head CT. She had previously expressed to family that she did not want aggressive life prolonging procedures, and she is a DNR. She is not awake to take in fluids. Family has opted for comfort measures. She is obtunded, and her blood sugar is significantly high. Discussed with her daughter continue to treat blood sugars with insulin as this could improve her mentation. We will see if there is a hospice company they prefer, and will enlist case management assistance tomorrow for placement. She appears comfortable right now, breathing easily. - Problems/Diagnosis (1) End of life care Problem: Acute (2) Left bundle branch block Problem: Acute (3) CVA (cerebral vascular accident) Problem: Acute (4) ACS (acute coronary syndrome) Problem: Acute (5) Flash pulmonary edema Problem: Acute (6) Elevated lactic acid level Problem: Acute (7) Diabetes mellitus with hyperglycemia Problem: Acute (8) Hyponatremia Problem: Acute (9) Hypertension Problem: Chronic (10) Diabetes Problem: Chronic (11) Acute renal insufficiency Problem: Acute (12) Hypothyroidism Problem: Chronic
[2020-03-18] MEDS: AZITHROMYCIN 500 MG in DEXTROSE 5 % IN WATER 250 ML IV SCH ×2 (13:08)
[2020-03-18] MEDS ORDERED: ACETAMINOPHEN 325 MG SUPP.RECT RC PRN (20:41)
[2020-03-18] MEDS: INSULIN GLARGINE,HUM.REC.ANLOG 100 UNITS/ML VIAL SC SCH (21:01)
[2020-03-19] MEDS: INSULIN LISPRO 100 UNITS/ML VIAL SC SCH ×4 (07:35→20:44)
[2020-03-19] MEDS ORDERED: NORMAL SALINE 1,000 ML IV ONE (10:17)
--- NOTE | 2020-03-19 13:26 | PN ---
Subjective - Date and Time Seen Date: 03/19/20 Time: 13:09 Subjective Narrative: Patient is unresponsive but awake. Objective Objective Narrative: 89-year-old female admitted for end-of-life care due to CVA, ACS, JASON was evaluated at bedside this morning and was found to be in critical condition. The patient's prognosis is poor given her given the multiple severe life- threatening conditions presenting simultaneously. The patient was found to have a subacute ischemic CVA in conjunction with a cardiac ischemic event which was evident by significantly elevated troponins. Since arriving to the [facility] floor she has been awake and alert but unresponsive to verbal stimuli. 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 She is not able to follow commands so neurological evaluation was not possible. I had a conversation with her daughter Spring who is her decision-maker and she expressed the mother's wish to only be placed on comfort measures and made comfortable when the moment came. The patient tolerated very clear that she does not want any aggressive treatments or other heroic measures in order to prolong her mother's life. She just request that the patient suffers no pain and only symptomatic medications that ensures comfort be administered. We will follow the patient's and the family's wish and keep comfort measures orders in place. For now she maintained stable vitals and is saturating at 93% on room air so she does not need supplemental oxygen, however the patient continues to present fever the last episode occurring last night so we will treat with acetaminophen when necessary and keep her on soft hydration. - Review of Systems Neurological: Reports: Weakness, Pre-existing Deficit - Vitals Vitals: Last Vital Signs Temp 38.0 C 03/18/20 20:35 Pulse 85 03/18/20 15:43 Resp 14 03/18/20 15:43 BP 156/72 H 03/18/20 15:43 Pulse Ox 92 L 03/18/20 15:43 - Exam Constitutional: Present: Alert, Somnolent, Elderly, Young Neck: Present: non-tender Breasts: Present: Exam deferred Respiratory: Present: chest non-tender, decreased breath sounds Cardiovascular/Chest: Present: no gallop, no JVD, no murmur, no rub, irregularly irregular Abdomen: Present: Normal bowel sounds, soft, nontender, nondistended, no rebound tenderness, no hepatospenomegaly, no masses /Rectal: Present: Exam deferred Extremity: Present: non-tender, normal inspection, no pedal edema, no calf tenderness Skin Exam: Present: normal color, warm/dry, no cyanosis Lymphatic: Present: no adenopathy Neurologic: Present: abnormal hotel or motel receptionist II-XII, disoriented x 3 Appearance: Present: impaired recent memory, impaired remote memory, other Eye contact: Present: other Thoughts: Present: other Cauti Physician Documentation - Urinary Catheter Management Urethral ([place]) Urethral Indwelling: Yes Date of Insertion: 03/17/20 Time of Insertion: 11:32 Assessment/Plan Plan Narrative: We will keep patient on comfort measures and arrange hospice care with [facility] as requested by the family. Once we have placement confirmed will be comfort care measures in place so that the patient's care can continue at the [facility]. - Problems/Diagnosis (1) ACS (acute coronary syndrome) Problem: Acute (2) Flash pulmonary edema Problem: Acute (3) Pneumonia Problem: Acute (4) Left bundle branch block Problem: Acute (5) CVA (cerebral vascular accident) Problem: Acute (6) Elevated lactic acid level Problem: Acute (7) Diabetes mellitus with hyperglycemia Problem: Acute (8) End of life care Problem: Acute (9) Hypertension Problem: Chronic (10) Diabetes Problem: Chronic (11) Acute renal insufficiency Problem: Acute
[2020-03-19] MEDS: MORPHINE SULFATE 4 MG/ML SYRG IV PRN ×2 (15:03→18:45)
[2020-03-19] MEDS: INSULIN GLARGINE,HUM.REC.ANLOG 100 UNITS/ML VIAL SC SCH (20:45)
[2020-03-20] MEDS: MORPHINE SULFATE 4 MG/ML SYRG IV PRN ×3 (02:56→10:42)
[2020-03-20] MEDS: INSULIN LISPRO 100 UNITS/ML VIAL SC SCH (06:41)
--- NOTE | 2020-03-20 08:57 | DS ---
(1) ACS (acute coronary syndrome) Problem: Acute (2) Flash pulmonary edema Problem: Acute (3) Pneumonia Problem: Acute (4) Left bundle branch block Problem: Acute (5) CVA (cerebral vascular accident) Problem: Acute (6) Elevated lactic acid level Problem: Acute (7) Diabetes mellitus with hyperglycemia Problem: Acute (8) End of life care Problem: Acute (9) Hypertension Problem: Chronic (10) Diabetes Problem: Chronic (11) Acute renal insufficiency Problem: Acute Date of Discharge:: 03/20/20 Hospital Course: 89-year-old female admitted for acute CVA and CSA continues to be critically ill and displays a poor prognosis based on the presentation of her symptoms. A thorough conversation was held with the patient's daughter in agreement was reached on discharging the patient back to the [facility] with hospice services. Therefore a hospital bed will be delivered to the facility today in order to prepare for the patient, comfort orders have been sent to pharmacy to make the patient as comfortable as possible. Procedures Performed: none Results and Findings: Pending Mircobiology Results 03/17/20 11:35 Blood Blood Culture - Preliminary NO GROWTH AFTER 48 HOURS 03/17/20 11:16 Blood Blood Culture - Preliminary NO GROWTH AFTER 48 HOURS Lab Pending Results 03/17/20 11:05: pCO2 28.6 L, pO2 76.7 L, HCO3 13.9 L, Total CO2 14.8 L, Base Excess -10.9 L, ABG pH 7.31 L, ABG O2 Sat (Measured) 94.4 03/17/20 11:16: WBC 20.0 H, RBC 4.10 L, Hgb 12.4 L, Hct 37.2, MCV 90.7, MCH 30.2 , MCHC 33.3, RDW 13.4, Plt Count 488 H, MPV 9.8, Neutrophils % (Manual) 83 H, Band Neuts % (Manual) 8 H, Lymphocytes % (Manual) 3 L, Monocytes % (Manual) 6, Neutrophils # (Manual) 16.6 H, Lymphocytes # (Manual) 0.6 L, Monocytes # (Manual) 1.2 H, Platelet Estimate Increased H, RBC Morphology Normal 03/17/20 11:16: Sodium 131 L, Plasma Sodium 138, Potassium 4.5, Chloride 95 L, Carbon Dioxide 16.8 L, Anion Gap 23.7 H, BUN 19, Creatinine 1.68 H D, Est GFR (Non-Af Amer) 31 L D, BUN/Creatinine Ratio 11.3, Random Glucose 554 H, Calcium 9.7, Calcium Adj for Albumin 9.6, Total Bilirubin 1.8 H, AST 58 H, ALT 32, Alkaline Phosphatase 106, Troponin I 9.600 H*, B-Natriuretic Peptide 8312 H, Total Protein 7.5, Albumin 3.7, Serum Ketones Negative 03/17/20 11:16: Lactic Acid, Venous 9.4 H* 03/17/20 11:31: Urine Color Yellow, Urine Appearance Clear, Urine pH 5.5, Ur Specific [place] 1.020, Urine Protein 30 H, Urine Glucose (UA) >=1000 H, Urine Ketones 15, Urine Blood 150 H, Urine Nitrate Negative, Urine Bilirubin Negative, Urine Urobilinogen Normal, Ur Leukocyte Esterase Negative, Urine RBC 0-5, Urine WBC 0-5, Ur Epithelial Cells 0-5, Urine Bacteria None seen, Urine Culture Comments No culture indicated 03/17/20 11:45: Chlamy pneumoniae PCR Not detected, Adenovirus (PCR) Not detected, B. pertussis DNA (PCR) Not detected, B.parapertussis DNA PCR Not detected, Coronavirus OC43 (PCR) Not detected, Coronavirus HKU1 (PCR) Not detected, Coronavirus 229E (PCR) Not detected, Coronavirus NL63 (PCR) Not detected, Human Metapneumovir PCR Not detected, Influenza B (RT-PCR) Not detected, M. pneumoniae (PCR) Not detected, Parainfluenza 1 (PCR) Not detected, Parainfluenza 2 (PCR) Not detected, Parainfluenza 3 (PCR) Not detected, Parainfluenza 4 (PCR) Not detected, RSV (PCR) Not detected, Rhinovirus (PCR) Not detected, SARS-CoV-2 (PCR) Not detected 03/17/20 14:00: Lactic Acid, Venous 6.4 H* Discharge Location: [facility] Disposition: Hospice Home Home Health Agency: [facility] Condition: Critical Face to Face Encounter completed per CMS Guidelines: No Discharge Activity: Other Discharge Diet: Other Referrals: Cece Haile MD [Primary Care Provider] - Additional Patient Instructions (free text): [facility]. Please call report and fax orders upon discharge. Prescriptions (Any new or edited meds): Atropine Sulfate [Atropine 1% Ophthalmic Solution] 2 drp SL Q4H PRN #15 ml PRN Reason: Oral Secretions or respiratory Transmission Status: Pending to [facility] Morphine Sulfate [Morphine Sulfate Conc. Oral Solution] 5 mg PO Q1H PRN #30 ml PRN Reason: pain &/or respiratory distress Transmission Status: Sent to [facility] Sennosides [Senokot] 8.6 mg PO BID #60 tab Transmission Status: Pending to [facility] ALPRAZolam [Xanax] 0.5 mg PO BID PRN #60 tab PRN Reason: Anxiety Transmission Status: Sent to [facility] Ondansetron [Zofran Odt] 8 mg PO Q6H PRN #30 tab.rapdis PRN Reason: Nausea Transmission Status: Pending to [facility] Complete Home Medications List: Complete Home Medication List: acetaminophen 500 mg tablet 500 mg PO Q4H PRN #30 tab 09/01/19 menthol 4 % topical gel 1 applic TP BID-TID PRN #118 ml 09/05/19 Ibuprofen [Motrin] 1 tab PO TID PRN 03/17/20 Loperamide HCl [Imodium A-D] 2 mg PO Q4H PRN 03/17/20 ALPRAZolam [Xanax] 0.5 mg PO BID PRN #60 tab 03/20/20 Atropine Sulfate [Atropine 1% Ophthalmic Solution] 2 drp SL Q4H PRN #15 ml 03/20/20 Morphine Sulfate [Morphine Sulfate Conc. Oral Solution] 5 mg PO Q1H PRN #30 ml 03/20/20 Ondansetron [Zofran Odt] 8 mg PO Q6H PRN #30 tab.rapdis 03/20/20 Sennosides [Senokot] 8.6 mg PO BID #60 tab 03/20/20 Forms: Patient Portal Registration
[2020-03-20 10:50] VITALS: BP 151/79
== END 2020-03-20 11:20 | disposition hospice, home (50) | DRG 871 ==
LOC: MS 10:45 → ER 10:45 → OBSVTOIN 13:30 → MS 14:00
PROVIDERS: ADMIT Family Medicine; ATTEND Family Medicine
DX: A41.9 Sepsis, unspecified organism; I44.7 Left bundle-branch block, unspecified; N28.9 Disorder of kidney and ureter, unspecified; E11.65 Type 2 diabetes mellitus with hyperglycemia; E87.2 Acidosis; I24.9 Acute ischemic heart disease, unspecified; I10 Essential (primary) hypertension; R77.8 Other specified abnormalities of plasma proteins; J18.9 Pneumonia, unspecified organism; E87.1 Hypo-osmolality and hyponatremia; I63.9 Cerebral infarction, unspecified; J81.0 Acute pulmonary edema; Z51.5 Encounter for palliative care; E03.9 Hypothyroidism, unspecified